=== PATIENT | female | born 1940 | race Two or more races ===

== ENCOUNTER 2019-04-08 08:16 | Outpatient (CLI) | payer OTHER | END 2019-04-08 08:27 | disposition home or self-care (01) | LOC: NUCLEAR 08:16 | DX: C77.5 Secondary and unspecified malignant neoplasm of intrapelvic lymph nodes (principal); C78.02 Secondary malignant neoplasm of left lung; C18.9 Malignant neoplasm of colon, unspecified | CPT/HCPCS: 78816; A9552 ==